=== PATIENT | male | born 1965 | race African-American/Black ===

== ENCOUNTER 2019-11-03 21:04 | Emergency (ER) | payer MEDICAID, OTHER ==
[~2019-11-03] VITALS: Ht 172.7 cm; Wt 74.8 kg
--- NOTE | 2019-11-03 21:37 | NUR ---
FIRST CONTACT WITH PT: PT BROUGHT BACK TO ROOM VIA WHEELCHAIR, PT TRANSFERRED TO [facility] VIA STAND BY ASSIST. PT MOVING SLOWLY. PT STATES HE "CAME IN BECAUSE I JUST DONT FEEL RIGHT INSIDE" WHEN ASKED WHAT DOESNT FEEL RIGHT PT STATES "I DONT KNOW I GUESS MY CHEST HURTS" PT PULSES 2+ RADIALLY AND DP. GROSS NEURO INTACT, DENIES TRAUMA, SKIN COLOR APPROPRIATE FOR ETHNICITY, WARM AND DRY. NAD. GIVEN WARM BLANKET FOR COMFORT. PT PLACED ON BP, SPO2, ECG MONITORS AT THIS TIME. VSS. PEDRO. WAITING ON ERP EVAL. Addendum: 11/03/19 at 2149 by KANDI WARM BLANKET REMOVED DUE TO CURRENT FEVER.
[2019-11-03] MEDS ORDERED: ACETAMINOPHEN 500 MG TABLET PO ONE (22:00)
[2019-11-03] MEDS ORDERED: SODIUM CHLORIDE 0.9% 1,000ML IVBOLUS ONE (22:00)
[2019-11-03] MEDS ORDERED: ACETAMINOPHEN 500 MG TABLET ONE (22:05)
--- NOTE | 2019-11-03 22:30 | NUR ---
LATE ENTRY: LABS SENT, PT MEDICATED PER MAR, RESTING IN GURNEY, NAD, VSS, WCTM. WAITING ON TEST RESULTS.
[2019-11-03 22:48] LABS: BASOPHILS % (AUTO) 0 % (0-1); EOSINOPHILS % (AUTO) 0 % (1-7); LYMPHOCYTES # (AUTO) 0.39 x10^3/uL (1-3.4); LYMPHOCYTES % (AUTO) 6 % (22-44); MD NO; MEAN CORPUSCULAR HEMOGLOBIN 30.8 pg (27.5-34.5); MEAN CORPUSCULAR HGB CONC 33.6 g/dL (33.2-36.2); MEAN CORPUSCULAR VOLUME 91.6 fL (81-97); MEAN PLATELET VOLUME 7.7 fL (7.4-10.4); MONOCYTES # (AUTO) 0.36 x10^3/uL (0.2-0.8); MONOCYTES % (AUTO) 6 % (2-9); NEUTROPHILS # (AUTO) 5.85 x10^3/uL (1.8-6.8); NEUTROPHILS % (AUTO) 89 % (42-75); PLATELET COUNT 201 x10^3/uL (130-400); RED BLOOD COUNT 4.94 x10^6/uL (4.38-5.82); RED CELL DISTRIBUTION WIDTH 12.9 % (9.4-14.8)
[2019-11-03 22:55] LABS: ALANINE AMINOTRANSFERASE 34 U/L (12-78); ALBUMIN 3.3 g/dL (3.4-5.0); ANION GAP 5 mmol/L (5-15); CALCIUM 8.1 mg/dL (8.5-10.1); CHLORIDE 108 mmol/L (98-107); CREATININE 1.04 mg/dL (0.7-1.3)
[2019-11-03 22:59] LABS: ALKALINE PHOSPHATASE 62 U/L (45-117); BILIRUBIN,TOTAL 1.1 mg/dL (0.2-1.0); TOTAL PROTEIN 6.6 g/dL (6.4-8.2); TROPONIN I < 0.015 ng/mL (0.000-0.045)
--- NOTE | 2019-11-03 23:02 | NUR ---
PT RESTING IN [facility], GIVEN URINAL FOR UA SAMPLE. NAD. WCTM.
--- NOTE | 2019-11-03 23:07 | NUR ---
pt unable to obtain urine at this time, pt condition unchanged, resting in [place] NAD, VSS, WCTM. waiting for urine specimen,
--- NOTE | 2019-11-03 23:22 | NUR ---
URINE AND COVID SAMPLE COLLECTED AND WALKED TO LAB. PT RESTING IN [facility], NO CHANGE IN CURRENT CONDITION. VSS. WCTM. WAITING FOR RESULTS.
[2019-11-03 23:43] LABS: MICROSCOPIC INDICATED
--- NOTE | 2019-11-03 23:55 | NUR ---
PT RESTING IN [facility], CONDITION UNCHANGED, WAITING ON RECHECK. WCTM.
[2019-11-04] MEDS ORDERED: CEFTRIAXONE PMX 1GM/50ML 50 ML IV ONE
[2019-11-04] MEDS ORDERED: CEFTRIAXONE PMX 1GM/50ML 50 ML ONE (00:15)
--- NOTE | 2019-11-04 00:21 | NUR ---
pt medicated per jun. resting in rney, lights dimmed for comfort. NAD, VSS, no change in condition, pt to be dc after meds finished. wctm.
[2019-11-04 01:33] VITALS: BP 96/60
--- NOTE | 2019-11-04 01:35 | NUR ---
Patient given discharge instructions and they have confirmed that they understand the instructions. Patient ambulatory with steady gait. Given taxi voucher, denies additional questions or needs at this time. NAD, VSS. no belonging left in room after DC.
== END 2019-11-04 01:47 | disposition home or self-care (01) ==
LOC: ED 23:02
DX: N30.01 Acute cystitis with hematuria (principal); R50.9 Fever, unspecified; Z20.828 Contact with and (suspected) exposure to other viral communicable diseases; N10 Acute pyelonephritis; R94.31 Abnormal electrocardiogram [ECG] [EKG]
CPT/HCPCS: 36415; 71045; 80053; 81001; 83605; 84145; 84484; 85025; 87040; 87077; 87086; 87186; 87635; 93005; 96365; 99285; J0696; J7030; 96361